=== PATIENT | female | born 1990 | race Caucasian/White ===

== ENCOUNTER 2017-11-25 19:41 | Emergency (ER) | payer MEDICAID ==
[~2017-11-25] VITALS: Ht 167.6 cm; Wt 72.0 kg
[~2017-11-25 19:41] MED LIST: NO HOME MEDS
[2017-11-25 19:44] VITALS: BP 119/67
[2017-11-25] MEDS ORDERED: PENI500T2 PO (20:33)
== END 2017-11-25 20:56 | disposition home or self-care (01) ==
LOC: ER 19:41
DX: K04.7 Periapical abscess without sinus (principal); F12.90 Cannabis use, unspecified, uncomplicated; Z79.899 Other long term (current) drug therapy
CPT/HCPCS: 99283

== ENCOUNTER 2018-09-13 20:02 | Emergency (ER) | payer MEDICAID | END 2018-09-13 21:49 | disposition left against medical advice (07) | LOC: ER 20:02 | DX: J40 Bronchitis, not specified as acute or chronic (principal); Z53.21 Procedure and treatment not carried out due to patient leaving prior to being seen by health care provider ==

== ENCOUNTER 2022-02-20 10:57 | Emergency (ER) | payer MEDICAID ==
[~2022-02-20] VITALS: Ht 167.6 cm; Wt 50.0 kg
[2022-02-20 11:13] VITALS: BP 90/68
[2022-02-20] MEDS ORDERED: IBUP-1986 PO (12:11)
[2022-02-20] MEDS ORDERED: AMOX500C2 PO (12:11)
== END 2022-02-20 12:19 | disposition home or self-care (01) ==
LOC: ER 10:58
DX: K08.89 Other specified disorders of teeth and supporting structures (principal); R50.9 Fever, unspecified; F12.90 Cannabis use, unspecified, uncomplicated; Z79.2 Long term (current) use of antibiotics; Z79.899 Other long term (current) drug therapy
CPT/HCPCS: 99283